=== PATIENT | male | born 1950 | race Caucasian/White ===

== ENCOUNTER → 2023-09-20 13:49 | Outpatient (REF) | payer OTHER, SELFPAY | LOC: HWRAD 13:49 | PROVIDERS: ATTENDING PHYSICIAN Internal Medicine Nephrology; FAMILY PHYSICIAN Family Medicine; REFERRING PHYSICIAN Internal Medicine Cardiovascular Disease | DX: N18.30 Chronic kidney disease, stage 3 unspecified (principal) | CPT/HCPCS: 76770 ==

== ENCOUNTER → 2023-11-21 14:37 | Outpatient (REF) | payer OTHER, SELFPAY | LOC: HWRAD 14:37 | PROVIDERS: ATTENDING PHYSICIAN Ophthalmology; FAMILY PHYSICIAN Family Medicine | DX: N18.9 Chronic kidney disease, unspecified (principal) | CPT/HCPCS: 74176 ==

== ENCOUNTER 2024-07-14 03:37 | Observation (INO) | payer OTHER, SELFPAY ==
[2024-07-13 20:18] VITALS: BP 154/55
[2024-07-13 20:34] VITALS: BMI 25.7
[2024-07-13 20:48] LABS: % Basophils 0.8 % (0-2); % Eosinophils 5.5 % (0-6); % Immature Granulocytes 0.3 % (0-0.5); % Lymphocytes 25.5 % (20.5-51.1); % Monocytes 12.8 % (1.7-9.3); % Neutrophils 55.1 % (42.2-75.2); Absolute Basophils 0.1 10^3/uL (0-0.2); Absolute Eosinophils 0.3 10^3/uL (0-0.7); Absolute Lymphocytes 1.6 10^3/uL (1.2-3.4); Absolute Monocytes 0.8 10^3/uL (0.1-0.6); Absolute Neutrophils 3.4 10^3/uL (1.4-6.5); Hematocrit 27.5 % (39.0-52.0); Hemoglobin 8.5 g/dL (13.0-18.0); Mean Corp Hgb Conc. 30.9 g/dL (33.0-37.0); Mean Corpuscular Hgb 29.4 pg (27.0-31.0); Mean Corpuscular Volume 95.2 fL (80.0-94.0); Mean Platelet Volume 10.4 fL (7.4-10.4); Nucleated Red Blood Cells % 0 % (-); Platelet Count 219 10^3/uL (130-400); Red Blood Cell Count 2.89 10^6/uL (4.70-6.10); Red Cell Dist. Width 12.9 % (11.5-14.5); White Blood Cell Count 6.2 10^3/uL (4.8-10.8)
[2024-07-13 21:08] LABS: ALT (SGPT) 32 U/L (0-50); AST (SGOT) 21 U/L (17-59); Albumin 3.9 g/dl (3.5-5.0); Alkaline Phosphatase 87 U/L (38-126); Blood Urea Nitrogen 63 mg/dl (9-20); Calcium 7.9 mg/dl (8.4-10.2); Carbon Dioxide 24 mmol/L (22-30); Chloride 108 mmol/L (98-107); Estimated Creatinine Clearance 16 ml/min; Glucose 162 mg/dl (70-99); Potassium 4.5 mmol/L (3.5-5.1); Sodium 142 mmol/L (135-145); Total Bilirubin 0.5 mg/dl (0.2-1.3); Total Protein 6.2 g/dl (6.3-8.2); eGFR 17.35
[2024-07-13 22:47] VITALS: BP 156/50
[2024-07-13 23:00] VITALS: BP 147/48
[2024-07-14] VITALS (10 sets, daily range): BP systolic 115–195; BP diastolic 54–110; PULSE 66–74; O2SAT 99; BMI 24.7
--- NOTE | 2024-07-14 00:53 | ED.GENMED ---
History of Present Illness
General
Chief Complaint: Weakness
Source: patient and spouse
Exam Limitations: none
Time Seen by Provider: 07/13/24 23:43
Nursing documentation reviewed up to this point in time: agreed with
History of Present Illness
History of Present Illness:
The patient is a 74-year-old man with a past medical history of dementia brought in by his for two episodes of acute weakness of his legs over the last 24 hours. His reports that the first episode occurred while driving back from [place]
2 nights ago. She reports that he complained of sudden onset of weakness and numbness of both legs and was unable to stand up completely. She reports this lasted about 2 hours and resolved. Patient reports that the same symptoms started again a
few hours ago and once again have resolved. Patient's reports that this is concerning to her because nothing like this has ever happened before and she reports that he generally does not complain. She denies any recent fever, cough or any
other illnesses.
Past History
Past History
ED Past Medical History: CAD, CVA, GERD (Hiatal hernia, Cheema's esophagus), HTN, Hypercholesterolemia, Psychiatric (Depression) and Other (Alcohol abuse, alcoholic cirrhosis, alcoholic encephalopathy, overactive bladder, borderline diabetes)
ED Past Surgical History: Tonsilectomy and Other (Carotid artery stents, renal artery stenting)
Social History
Tobacco: Former smoker
Alcohol: Former (Chronic alcoholic, sober since April 2016)
Personal:
Living: with family
Employment: Retired
Family History
Family History: Other (Uncontributory)
Review of Systems
Review of Systems
Allergies reviewed?: Yes
Unable to obtain full review of systems at this time due to: dementia
Other source history: family
All Other Systems: ROS reviewed and negative except as documented in HPI and ROS
Constitutional: Reports no symptoms
EENT: Reports no symptoms
Respiratory: Reports no symptoms
Cardiac: Reports no symptoms
ABD/GI: Reports no symptoms
: Reports no symptoms
Musculoskeletal: Reports no symptoms
Skin: Reports no symptoms
Neurological: Reports weakness (Weakness of bilateral legs which is now resolved) and numbness (Numbness of bilateral legs which has resolved)
Hematologic/Lymphatic: Reports no symptoms
Psychiatric: Reports no symptoms
Phy Exam
Physical Exam
Physical Exam:
Physical Exam
General: no apparent distress, not acutely ill
Neck: supple. no meningeal signs. normal psoterior pharynx
Heart: s1/s2 regular rate and rhythm, no murmur. equal radial pulses.
Lungs: no acute respiratory distress. clear bilaterally
Abdomen: normal bowel sounds. not tender. no CVAT. No spinal tenderness throughout
Neuro: alert and oriented to self and place. 5 out of 5 strength in all extremities. No saddle anesthesia
Skin: no rash
Psychiatric: well kept. interactive and cooperative
Extremities: no edema. no calf tenderness. negative homans. good distal pulses.
Course
Orders/Labs/Results
Orders:
Orders
07/13/24 20:26
EKG [Electrocardiogram (*1)] Urgent
Reason for Study: Fatigue / Weakness
07/13/24 20:27
EKG- Treatment ONCE
07/13/24 20:38
Complete Blood Count/With Diff Urgent
Comprehensive Metabolic Panel Urgent
07/14/24 00:51
Urinalysis Reflex To Culture Urgent
Date Specimen was Collected: 07/14/24
Time Specimen was Collected: 01:52
07/14/24 00:52
Lumbar Spine Complete, 4 View [CR Lumbar Spine Comp Min 4 Vw*] Urgent
Comment:
Reason For Exam: weakness of legs
07/14/24 00:58
COVID-19 Antigen Urgent
Source: Nasal Swab
Influenza A+B Rapid Molecular Urgent
AMALIA Source: Nasal Swab
Specimen Description:
Abnormal Lab Results
07/13/24
20:38
RBC 2.89 L 10^6/uL
(4.70-6.10)
Hgb 8.5 L g/dL
(13.0-18.0)
Hct 27.5 L %
(39.0-52.0)
MCV 95.2 H fL
(80.0-94.0)
MCHC 30.9 L g/dL
(33.0-37.0)
Absolute Monos (auto) 0.8 H 10^3/uL
(0.1-0.6)
Monocytes % 12.8 H %
(1.7-9.3)
Chloride 108 H mmol/L
(98-107)
BUN 63 H mg/dl
(9-20)
Creatinine 3.5 H mg/dL
(0.7-1.3)
Glucose 162 H mg/dl
(70-99)
Calcium 7.9 L mg/dl
(8.4-10.2)
Total Protein 6.2 L g/dl
(6.3-8.2)
07/13/24 20:38
07/13/24 20:38
Vital Signs
Initial and Last Documented VS:
Initial Vital Signs
Temp Pulse Resp BP Pulse Ox
98.4 F 77 20 154/55 98
07/13/24 20:18 07/13/24 20:18 07/13/24 20:18 07/13/24 20:18 07/13/24 20:18
Last Documented Vital Signs
Temp Pulse Resp BP Pulse Ox
98.4 F 70 14 155/79 96
07/13/24 20:18 07/14/24 02:15 07/14/24 02:15 07/14/24 01:56 07/14/24 01:56
MDM/Problems Addressed
Differential Diagnosis Includes:
Hypokalemia, spinal cord lesion, viral illness, UTI
MDM/Problems Addressed:
Patient arrives with history of recurrent acute bilateral leg weakness and numbness
*Radiology
Radiology exam reviewed: preliminary read by ED provider (L-spine reviewed by me. No acute fracture seen)
*Pulse Oximetry
Patient hypoxic: no
*EKG
Interpreted by ED Provider?: NA
*Senior Database Programmer Interpretation
Rate: Senior Database Programmer- N/A
*Critical Care Note
Total Time (30-74mins, 75-104mins- exclusive of procedures): Not Applicable
Data Reviewed
Source: patient and spouse
Patient Management
Social determinants of health affecting care: Living situation and Strong social support
Discussion with other providers: Hospitalist
ED Attending Note
-
Portions of this chart may have been created with voice recognition software.� Occasional wrong word or��sound alike� substitutions may have occurred due to the inherent limitations of voice recognition software.
Discharge Plan
Departure
Patient Disposition: Admit
Date of Disposition: 07/14/24
Time of Disposition: 02:13
Admit to: Med/Surg
Presentation/result/management discussed w/ accepting MD/DO: Hospitalist
Patient with high blood pressure during this ER visit?: No
Covid-19: Negative COVID-19
Discharge Problem:
Bilateral leg weakness
Prescriptions:
No Action
Alprazolam
0.5 mg PO BID
Amlodipine
5 mg PO DAILY
Aspirin Low (Enteric Coated):
81 mg PO DAILY
Benadryl:
50 mg PO Q4H PRN (Reason: itching)
Carvedilol
25 mg PO BID
Clopidogrel
75 mg PO DAILY
Fluoxetine HCl
40 mg PO DAILY
Hcl-Vit-1
100 mg PO BID
Hydroxyzine HCl
50 mg PO Q8H PRN (Reason: itching)
Lactulose
30 ml PO TID
Losartan Potassium
100 mg PO DAILY
Pepcid:
20 mg PO DAILY
Rosuvastatin Calcium
20 mg PO DAILY
Vitamin B-1:
100 mg PO DAILY
Vitamin B-6:
100 mg PO DAILY
Vitamin D3:
2,000 mg PO DAILY
Xifaxan:
550 mg PO BID
Referrals:
Kali Aguayo MD [Family Provider] -
Interventions
Interventions:
*Risk Screen - Suicide Last Done: 07/13/24 20:18
*General Assessment Last Done: 07/13/24 20:18
*Neglect/Abuse Screening Last Done: 07/13/24 20:18
*ED- Fall Risk Assessment Last Done: 07/13/24 20:25
*ED COVID-19 Vaccine History Last Done: 07/13/24 20:25
ED- Cardiac Assessment Last Done: 07/13/24 22:52
ED- Neurological Assessment Last Done: 07/13/24 22:52
ED- Pulmonary Assessment Last Done: 07/13/24 22:52
Discharge Date and Time
Print Language: JAPANESE
[2024-07-14 01:23] LABS: COVID-19 Antigen Negative (Negative)
--- NOTE | 2024-07-14 03:08 | HPS.HSE ---
Family Physician
-
Family Physician: Kali Aguayo
Chief Complaint
-
Weakness
History of Present Illness
This is a 74-year-old with past medical history of prior alcohol abuse, dementia, GERD, alcoholic cirrhosis without ascites, gout, peripheral arterial disease status post carotid endarterectomy, hypertension and hyperlipidemia, CKD with renal artery
stenosis presents to the emergency department from home for weakness.
Spouse provided history to ED but she was not available at time of my evaluation. According to spouse and patient he was in usual state of health up until today. Apparently developed sudden weakness in the bilateral lower extremities and collapsed
to the floor. Patient himself denies having any knee ankle or hip pain. He denies any back pain. He denies any paresthesias. He denies any prior leg weakness. He denies any prior back pain, back injury or back surgery. He denies any neck pain.
He denies any headache. He did not strike his head. He denied feeling dizzy or lightheaded recently. Patient denies any chest pain or palpitations. He denies any sick contacts and denies that he has had any recent cough cold or flulike
symptoms. Denies any urinary symptoms. He denies any recent hospitalizations. He is unable to tell me his medications. He does note that he follows with Dr. Kali Pierre.
In the emergency department he was afebrile, blood pressure was 155/80 with a pulse of 70. He was satting 98% on room air. ECG shows a normal sinus rhythm with right bundle branch block. CBC notable for hemoglobin of 8.5. MCV was 95.
Electrolytes were normal. His BUN was 63, creatinine 3.5, glucose was 162.
COVID test is negative. Influenza test is negative. He had x-ray of the lumbar spine which shows no acute fracture but showed degenerative disease of the lumbar spine.
Medical History
Past Medical History
Past Medical History: Reports Dementia, GERD, HTN, Hypercholesterolemia, Renal Failure (Renal artery stenosis, CKD, unknown baseline creatinine currently in 2017 was 2.1 ) and Other (Peripheral arterial disease, history of alcohol dependence,
history of alcoholic cirrhosis without ascites,)
Past Surgical History: Reports Tonsilectomy
Social History
Tobacco: Former Smoker
Alcohol: Former
Drug: None
Personal:
Living: With Family
Employment: Retired
Family History
Family History: Not pertinent
Allergies / Home Medications
Allergies reflects when Allergies were last updated in [facility].
Home Medications with original date entered in [facility]
Allergy/Medication List:
Allergies
Allergy/AdvReac Type Severity Reaction Status Date / Time
No Known Allergies Allergy Verified 07/13/24 20:27
Home Medications
Alprazolam 0.5 mg PO BID 08/09/16
Amlodipine 5 mg PO DAILY 08/09/16
Aspirin Low (Enteric Coated): 81 mg PO DAILY 08/09/16
Benadryl: 50 mg PO Q4H PRN itching 08/09/16
Carvedilol 25 mg PO BID 08/09/16
Clopidogrel 75 mg PO DAILY 08/09/16
Fluoxetine HCl 40 mg PO DAILY 08/09/16
Hcl-Vit-1 100 mg PO BID 08/09/16
Hydroxyzine HCl 50 mg PO Q8H PRN itching 08/09/16
Lactulose 30 ml PO TID 08/09/16
Losartan Potassium 100 mg PO DAILY 08/09/16
Pepcid: 20 mg PO DAILY 08/09/16
Rosuvastatin Calcium 20 mg PO DAILY 08/09/16
Vitamin B-1: 100 mg PO DAILY 08/09/16
Vitamin B-6: 100 mg PO DAILY 08/09/16
Vitamin D3: 2,000 mg PO DAILY 08/09/16
Xifaxan: 550 mg PO BID 08/09/16
Review of Systems
-
History Source: Patient
Constitutional: Reports No Symptoms
EENT: Reports No Symptoms
Respiratory: Reports No Symptoms
Cardiac: Reports No Symptoms
Abdomen/GI: Reports No Symptoms
: Reports No Symptoms
Musculoskeletal: Reports No Symptoms
Skin: Reports No Symptoms
Neurological: Reports No Symptoms
Endocrine: Reports No Symptoms
Hematologic/Lymphatic: Reports No Symptoms
Psych: Reports No Symptoms
Physical Exam
Vital Signs
Vital Signs
Temp Pulse Resp BP Pulse Ox
98.4 F 70 14 155/79 96
07/13/24 20:18 07/14/24 02:15 07/14/24 02:15 07/14/24 01:56 07/14/24 01:56
Physical Exam
General: Well Developed, No Apparent Distress and Comfortable
HEENT: NormoCephalic, Anicteric, Moist mucous membranes, Atraumatic and PERRLA
Respiratory: Clear
Cardiac: S1/S2 and Regular Rhythm
Breast: Deferred by me
GI: Soft, Non Tender, Non Distended and Normal Bowel Sounds
Rectal: Deferred by Provider
Genito-urinary: Deferred by me
Musculoskeletal: No Clubbing and No Cyanosis
Skin: Warm
Neuro: AO x 3 and Nonfocal/grossly intact
Hematologic/Lymphatic: No Lymphadenopathy
Laboratory Results
-
07/13/24 20:38
07/13/24 20:38
Laboratory Results
Total Bilirubin 0.5 mg/dl (0.2-1.3) 07/13/24 20:38
AST 21 U/L (17-59) 07/13/24 20:38
ALT 32 U/L (0-50) 07/13/24 20:38
Alkaline Phosphatase 87 U/L (38-126) 07/13/24 20:38
Data Reviewed
-
Diagnostic Radiology: Report Reviewed by me
Medical Tests (Nuc Med, Echo, EKG etc): Image Personally Visualized and interpreted
Lab Data: Labs Reviewed by me
Old Records: Reviewed
Impression/Plan
-
IMPRESSION:
74-year-old w/ dementia, h/o etoh abuse with cirrhosis who presents to the emergency department with sudden collapse to the floor which he said is secondary to bilateral leg weakness without associated pain or discomfort. Labs in the ED is mostly
unremarkable. ECG is unremarkable. He does have abnormalities with elevated elevated BUN/creatinine of 60 and 3.5 respectively. His hemoglobin is down to 8.5. He is vital signs stable. Patient currently denies any symptoms. Physical exam shows
5 out of 5 strength in the bilateral upper and lower extremities. There is no sensory deficit. He denies any orthostatic symptoms. He denies any urinary symptoms.
PLAN:
Weakness -patient reports sudden weakness of his bilateral lower extremities, no history of progressive weakness. No history of intercurrent illness or dehydration. ED to the spine with DJD and with concern for myelopathy however patient's had no
urinary or bowel symptoms. Is neurological exam is intact with no anesthesia, no paresthesias, no weakness, no saddle anesthesia and normal rectal tone.
- admit to observation/tele
- telemetry to rule out arrythmia as etiology of weakness
- check orthostatics
- tsh, b12, folate,
- denies any recent etoh or drugs
- u/a is pending
- PT evaluation, if weakness recurs consider the mr spine.
Chronic issues - Patient with htn, hld, CKD, h/o etoh w/ cirrhosis and he has anemia. No med list available.
Anemia - Macrocytic anemia. Given hx of etoh/cirrhosis cannot rule out vit def. Possibly from renal disease
- b12/folate as above
- check retic
- check iron and ferritin
- no indication for acute transfusion
Renal Injury - Likely CKD but uncertain. Cr 2.1 in 2017 and h/o CHARLENE
- obtain records from Dr. Kali Pierre ([facility]. [address] [place] [address], )
- avoid nephrotoxins
- orthostatics as above
- check ck
Given renal function cannot use current medications as they are 8 years old
- obtain med list from robby or Dr. Pierre in am
DVT PPX - heparin sq
Code statsu - Full code
[2024-07-14] MEDS: NORVASC 5 MG PO (04:59)
[2024-07-14] MEDS: COREG 25 MG PO (04:59)
--- NOTE | 2024-07-14 05:16 | PTCARENOTE ---
Pt.'s BPS found to be running high (190s/70s). Provider notified and this nurse was instructed to give scheduled AM BP meds early. Scheduled norvasc and coreg given. Will f/u with AM shift regarding elevated BPS and continue to monitor.
[2024-07-14 08:42] LABS: Reticulocyte Count 1.4 % (0.4-2.8)
[2024-07-14 09:23] LABS: Creatine Phosphokinase 84 U/L (55-170); Iron 52 ug/dl (49-181)
--- NOTE | 2024-07-14 09:31 | W.PN.HOSP.TC ---
Today's Communication/Plan
-
PT consult
compression stockings
Assessment / Plan
Assessment / Plan
Gen-awake, alert, NAD, not oriented to hospital or month
HEENT-NC, AT, anicteric, clear oral mm
Neck-supple
CV-reg, no M, +S1/S2
Lungs-clear B/L
Abd-soft, NT, ND
Ext-no edema
Musculoskeletal-no cyanosis, clubbing
Skin-warm and dry
Neuro-grossly non-focal bilateral upper and lower extremities
Psych-calm, cooperative
Weakness - with a fall prior to admission. Suspect orthostatic hypotension related fall. Compression stockings ordered.
Neurologically he is intact and nonfocal. No indication for imaging.
Consult PT/OT.
CKD 4 -creatinine 3.4 in May, 3.5 currently. 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 Discussed with . Baseline creatinine obtained by speaking with PCPs office.
Chronic anemia -due to CKD. Hemoglobin at baseline. Hemoglobin was 8.9 in May. Information obtained by speaking with PCPs office. He just received a erythrocyte stimulating agent dose prior to admission according to .
Dementia
Hypothyroidism -continue levothyroxine.
Essential hypertension -blood pressure uncontrolled. I spoke with on the phone, she confirmed that his home dose of carvedilol was 3.125 mg twice daily. He is not on amlodipine according to .
History of alcoholic cirrhosis
Full code
Dispo -anticipate discharge today after evaluated by PT. Follow-up with PCP.
Anticipated Discharge: Today
Subjective/Interval History
-
Date of Service: July 14, 2024
Patient seen and examined. No complaints.
Objective Data
-
Labs:
Laboratory Results
07/14/24 07/14/24
09:14 09:15
WBC Pending
Hgb Pending
Hct Pending
Plt Count Pending
Sodium Pending
Potassium Pending
Chloride Pending
Carbon Dioxide Pending
BUN Pending
Creatinine Pending
Glucose Pending
Calcium Pending
Vital Signs:
Vital Signs
Temp Pulse Resp BP Pulse Ox
97.4 F 70 18 161/54 98
07/14/24 07:53 07/14/24 07:53 07/14/24 07:53 07/14/24 07:53 07/14/24 07:53
Review of Systems
-
History Source: Patient
All other systems: Reviewed and negative
[2024-07-14 09:33] LABS: Percent Saturation 21 % (20-50); Total Iron Binding Capacity 243 ug/dl (261-462)
[2024-07-14 09:45] LABS: Blood Urea Nitrogen 62 mg/dl (9-20); Calcium 7.8 mg/dl (8.4-10.2); Carbon Dioxide 21 mmol/L (22-30); Chloride 113 mmol/L (98-107); Estimated Creatinine Clearance 17 ml/min; Glucose 102 mg/dl (70-99); Sodium 143 mmol/L (135-145); eGFR 18.62
[2024-07-14 09:46] LABS: Urine Albumin 3+ (Neg - Trace); Urine Bilirubin Negative (Negative); Urine Character Clear (Clear); Urine Color Yellow; Urine Glucose Negative (Negative); Urine Ketone Negative (Negative); Urine Leukocyte Negative (Negative); Urine Nitrite Negative (Negative); Urine Occult Blood 3+ (Negative); Urine Urobilinogen Negative (Neg - 1+)
[2024-07-14 09:46] LABS: % Basophils 0.9 % (0-2); % Eosinophils 6.1 % (0-6); % Immature Granulocytes 0.3 % (0-0.5); % Lymphocytes 23.6 % (20.5-51.1); % Neutrophils 58.1 % (42.2-75.2); Absolute Basophils 0.1 10^3/uL (0-0.2); Absolute Eosinophils 0.5 10^3/uL (0-0.7); Absolute Lymphocytes 1.8 10^3/uL (1.2-3.4); Absolute Monocytes 0.8 10^3/uL (0.1-0.6); Absolute Neutrophils 4.4 10^3/uL (1.4-6.5); Hematocrit 25.6 % (39.0-52.0); Hemoglobin 8.3 g/dL (13.0-18.0); Mean Corp Hgb Conc. 32.4 g/dL (33.0-37.0); Mean Corpuscular Hgb 30.4 pg (27.0-31.0); Mean Corpuscular Volume 93.8 fL (80.0-94.0); Nucleated Red Blood Cells % 0 % (-); Platelet Count 198 10^3/uL (130-400); Red Blood Cell Count 2.73 10^6/uL (4.70-6.10); Red Cell Dist. Width 12.9 % (11.5-14.5); White Blood Cell Count 7.6 10^3/uL (4.8-10.8)
[2024-07-14 09:53] LABS: Urine Bacteria Few (Negative); Urine Hyaline Cast 0-2 /LPF (0-2); Urine Red Blood Cell 16-20 /HPF (0-2); Urine Squamous Cell 0-2 /LPF (Few); Urine White Cell 0-2 /HPF (0-5)
[2024-07-14 10:12] LABS: Folate > 20.0 ng/ml (2.76-20); Vitamin B12 772 pg/ml (239-931)
[2024-07-14 10:20] LABS: Ferritin 37.1 ng/ml (17.9-464.0)
[2024-07-14] MEDS: PLAVIX 75 MG PO (10:28)
[2024-07-14] MEDS: HEPARIN 5000 UNITS SC (10:29)
[2024-07-14] MEDS: SODIUM BICARBONATE 650 MG PO (10:35)
--- NOTE | 2024-07-14 14:04 | W.DS.TRANS ---
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
-
Discharge Instructions:
Discharge Diagnosis/Procedures Orthostatic hypotension
Diet 2 Gram Sodium
Activity As tolerated
Driving Restrictions As prior to admission
Bathing Restrictions None
Instructions:
Stand-Alone Forms:
Changes to Home Medications: No
Discharge Medications:
DC Medications w/original date entered in [facility]
Clopidogrel 75 mg PO DAILY 08/09/16
Metamucil 07/14/24
aripiprazole 2 mg tablet 2 mg PO BID 07/14/24
ascorbic acid (vitamin C) 250 mg tablet (Vitamin C) 250 mg PO BID 07/14/24
carvedilol 3.125 mg tablet 3.125 mg PO BID 07/14/24
citalopram 20 mg tablet 20 mg PO DAILY 07/14/24
levothyroxine 75 mcg tablet 75 mcg PO DAILY 07/14/24
memantine 28 mg capsule sprinkle,extended release 24hr 28 mg PO DAILY 07/14/24
rosuvastatin 10 mg tablet 10 mg PO DAILY 07/14/24
sodium bicarbonate 650 mg tablet 650 mg PO TID #0 tabs 07/14/24
vit C 250 mg-vit E 90 mg-zinc 40 mg-copper 1 [id number] capsule (PreserVision AREDS-2) 1 tab PO BID 07/14/24
Home Medication Changes
Pending Results: No
--- NOTE | 2024-07-14 14:45 | CM ---
Patient will d/c today, d/c order is placed. Patient seen bedside, initial assessment completed. Patient is a 74-year-old with past medical history of prior alcohol abuse, dementia, GERD, alcoholic cirrhosis without ascites, gout, peripheral
arterial disease status post carotid endarterectomy, hypertension and hyperlipidemia, CKD with renal artery stenosis presents to the emergency department from home for weakness.
Patient reports that he lives w/ spouse in a single story home- no steps. Patient is independent w/ ambulating and ADLs, no device required. Patient reports he has grab bars in the home. Denies SNF/VN/PT hx. Denies any current OP or home services at
this time.
Address, point of contact and insurance verified
PCP: Kali Aguayo
Pharmacy: [facility]
Patient is admitted as OBS. VELEZ form reviewed, patient given copy, copy placed in chart
IMM verbally reviewed, patient given copy, copy placed in chart
Therapy assessed patient and is recommending HH at d/c. Spoke w/ patient's spouse regarding d/c and HH recommendation, spouse shared she will transport patient home and is agreeable to HH. Spouse had no preference and agreed to referral to [facility].
[facility] referral placed in [facility], liaison made aware
Plan: Home w/ [facility]
--- NOTE | 2024-07-14 15:23 | VNURNOTE ---
Home Health Liaison spoke with patient's spouse and to discuss [facility] nurse/therapy, visits, schedule and homebound status. She is agreeable and understands that visits at home will be 2-3 x per week to assess and teach medical management. Spouse is
aware that [facility] will contact them for start of care in 1-2 days after discharge from . [facility] referral in [facility].
[2024-07-14] MEDS: HEPARIN SC (17:18)
[2024-07-14] MEDS: SODIUM BICARBONATE PO (17:20)
== END 2024-07-14 18:03 | disposition home health service (06) ==
LOC: 4 EAST ACU 03:37
PROVIDERS: Emergency Medicine; ADMITTING PHYSICIAN Internal Medicine; ATTENDING PHYSICIAN Hospitalist; EMERGENCY PHYSICIAN Emergency Medicine; FAMILY PHYSICIAN Family Medicine
DX: I95.1 Orthostatic hypotension (principal); R53.1 Weakness; F32.A Depression, unspecified; F03.93 Unspecified dementia, unspecified severity, with mood disturbance; R20.0 Anesthesia of skin; K21.9 Gastro-esophageal reflux disease without esophagitis; E78.00 Pure hypercholesterolemia, unspecified; I12.9 Hypertensive chronic kidney disease with stage 1 through stage 4 chronic kidney disease, or unspecified chronic kidney disease; K70.30 Alcoholic cirrhosis of liver without ascites; I25.10 Atherosclerotic heart disease of native coronary artery without angina pectoris; F10.21 Alcohol dependence, in remission; I73.9 Peripheral vascular disease, unspecified; E78.5 Hyperlipidemia, unspecified; I70.1 Atherosclerosis of renal artery; I45.10 Unspecified right bundle-branch block; M51.369 Other intervertebral disc degeneration, lumbar region without mention of lumbar back pain or lower extremity pain; R79.89 Other specified abnormal findings of blood chemistry; R94.4 Abnormal results of kidney function studies; N18.4 Chronic kidney disease, stage 4 (severe); D64.9 Anemia, unspecified; M43.17 Spondylolisthesis, lumbosacral region; M47.819 Spondylosis without myelopathy or radiculopathy, site unspecified; M51.379 Other intervertebral disc degeneration, lumbosacral region without mention of lumbar back pain or lower extremity pain; I70.0 Atherosclerosis of aorta; E03.9 Hypothyroidism, unspecified; W18.39XA Other fall on same level, initial encounter; Y93.89 Activity, other specified; Y92.9 Unspecified place or not applicable; Z79.82 Long term (current) use of aspirin; Z86.73 Personal history of transient ischemic attack (TIA), and cerebral infarction without residual deficits; Z87.19 Personal history of other diseases of the digestive system; Z87.891 Personal history of nicotine dependence; Z79.890 Hormone replacement therapy; Z79.02 Long term (current) use of antithrombotics/antiplatelets; Z11.52 Encounter for screening for COVID-19
CPT/HCPCS: 72110; 80048; 80053; 81003; 81015; 82550; 82607; 82728; 82746; 83540; 83550; 85025; 85045; 87502; 87811; 93005; 97162; 99285; G0378